=== PATIENT | female | born 1975 | race Caucasian/White ===

== ENCOUNTER 2021-08-17 18:45 | Emergency (ER) | payer SELFPAY ==
[~2021-08-17] VITALS: Ht 162.5 cm; Wt 88.0 kg
[2021-08-17 20:05] LABS: HEMATOCRIT 35.7 % (37.0-47.0); MEAN CELL VOLUME 81.5 fl (81.0-99.0); MEAN CORPUSCULAR HGB 25.3 pg (27.0-31.0); MEAN CORPUSCULAR HGB CONC 31.1 g/dl (33.0-37.0); MEAN PLATELET VOLUME 9.8 fl (9.6-12.3); PLATELET COUNT AUTOMATED 269 10*3/uL (130-400); RED BLOOD COUNT 4.38 10*6/uL (4.10-5.10); RED CELL DISTRI WIDTH 16.4 % (0-14.5); WHITE BLOOD COUNT 11.2 10*3/uL (4.8-10.8)
[2021-08-17 20:06] LABS: MANUAL DIFF REFLEX YES
[2021-08-17 20:20] LABS: ALKALINE PHOSPHATASE 94 U/L (45-117); BUN 10 mg/dl (7-24); CHLORIDE 108 mmol/L (98-107); CREATININE 0.67 mg/dL (0.55-1.02); POTASSIUM 3.8 mmol/L (3.5-5.1); SGOT/AST 28 IU/L (3-35); SGPT/ALT 57 U/L (12-78); SODIUM 140 mmol/L (136-145); TOTAL PROTEIN 7.2 gm/dL (6.4-8.2)
[2021-08-17 20:28] LABS: ATYPICAL LYMPHS 12 % (0-0); PLATELET SUFFICIENCY NORMAL (NORMAL); POLYCHROMASIA SLIGHT; TOTAL CELLS COUNTED 100 #CELLS
== END 2021-08-17 23:00 | disposition home or self-care (01) ==
LOC: ED 18:45
PROVIDERS: Nurse Practitioner Family
DX: M25.511 Pain in right shoulder (principal); Z20.822 Contact with and (suspected) exposure to COVID-19; X50.0XXA Overexertion from strenuous movement or load, initial encounter; Y93.89 Activity, other specified; Y92.69 Other specified industrial and construction area as the place of occurrence of the external cause; Y99.9 Unspecified external cause status